=== PATIENT | male | born 1980 | race African-American/Black ===

== ENCOUNTER 2018-11-15 13:06 | Emergency (ER) | payer MEDICAID, OTHER ==
[~2018-11-15] VITALS: Ht 172.7 cm; Wt 67.0 kg
--- NOTE | 2018-11-15 13:06 | NUR ---
PT IS AN INMATE ACCOMPANIED BY VAL DONNELLY WITH C/O LOWER ABD PAIN 12/15. PT STATES "THIS IS GOING ON FOR A WEEK NOW" PT STATES HE HAS "INGUINAL HERNIAS" EDMD IN TO EXAMINE PT. PT ON NIBP, CONT PULSE OX. PT DENIES SOB, CP, TRAUMA, MACHUCA. NO EVIDENCE OF DISTRESS NOTED. AWAITING ORDERS
--- NOTE | 2018-11-15 13:10 | NUR ---
Note gemaone in EDM - 11/15/18 at 1313 by GERALDO PT IS AN INMATE ACCOMPANIED BY VAL DONNELLY WITH C/O LOWER ABD PAIN 12/15. PT STATES "THIS IS GOING ON FOR A WEEK NOW" PT STATES HE HAS "INGUINAL HERNIAS" EDMD IN TO EXAMINE PT. PT ON NIBP, CONT PULSE OX. PT DENIES SOB, CP, TRAUMA, MACHUCA. NO EVIDENCE OF DISTRESS NOTED. AWAITING ORDERS
[2018-11-15] MEDS ORDERED: IBUPROFEN 800 MG TABLET PO ONE (13:30)
[2018-11-15 13:55] VITALS: BP 120/77
[2018-11-15] MEDS ORDERED: PLEASE ENTER HEIGHT AND WEIGHT MC SCH (14:00)
--- NOTE | 2018-11-15 14:27 | NUR ---
Ciaran olivera in ED - 11/15/18 at 1428 by [email or web address] PT GIVEN DISCHARGE INSTRUCTIONS, UNDERSTANDING STATED. PT GIVEN MEAL TRAY PRIOR TO D/C. PT IN CUSTODY OF GUARD ON D/C
--- NOTE | 2018-11-15 14:29 | NUR ---
PT GIVEN DISCHARGE INSTRUCTIONS, UNDERSTANDING STATED. PT GIVEN MEAL TRAY PRIOR TO D/C. PT IN CUSTODY OF GUARD ON D/C
== END 2018-11-15 14:32 | disposition home or self-care (01) ==
LOC: ED 13:27
DX: L04.1 Acute lymphadenitis of trunk (principal)
CPT/HCPCS: 76857; 99284